=== PATIENT | female | born 1955 | race Two or more races ===

== ENCOUNTER → 2020-02-04 | Outpatient (CLI) | payer OTHER, MEDICAID | END | disposition home or self-care (01) | LOC: Rad HDHVI 09:16 | PROVIDERS: ATTEND Internal Medicine | DX: I70.0 Atherosclerosis of aorta (principal); I05.9 Rheumatic mitral valve disease, unspecified; I50.9 Heart failure, unspecified; I27.21 Secondary pulmonary arterial hypertension; I42.9 Cardiomyopathy, unspecified; R06.02 Shortness of breath | CPT/HCPCS: 71046; 93306 ==

== ENCOUNTER → 2020-02-05 | Outpatient (CLI) | payer OTHER, MEDICAID ==
[~2020-02-05] VITALS: Ht 152.4 cm; Wt 87.1 kg
[~2020-02-05] MED LIST: ADENOSINE 73 MG in GIVE UN-DILUTED 0 ML IV ONE; ADENOSINE 90 MG/30 ML INJ IV ONE
== END | disposition home or self-care (01) ==
LOC: Rad HDHVI 09:16
PROVIDERS: ATTEND Internal Medicine
DX: Z01.810 Encounter for preprocedural cardiovascular examination (principal); E11.9 Type 2 diabetes mellitus without complications; E78.00 Pure hypercholesterolemia, unspecified
CPT/HCPCS: 78452; 93005; 96374; 96375; A9500; J0153